=== PATIENT | female | born 1955 | race Caucasian/White ===

== ENCOUNTER → 2016-08-07 | Outpatient (CLI) | payer OTHER ==
[~2016-08-07] MED LIST: ALLEGRA PO; ALLEGRA180 MG PO; ASPIRIN81 M2 PO; DIFLUCAN100 MG PO; FISH OIL 1,2001 EAC5; FLONASE16 GM; LIDOCAINE VISCOU1 ML EXT; LIPITOR PO; LISINOPRIL-HCTZ1 T14 PO; NORVASC PO; PERCOCET 5-3251 TAB PO; PREMARIN PO; PREVACID PO; PYRIDIUM100 MG PO; SYNTHROID125 PO; VITAMIN C PO; VITAMIN D 4001 UDTAB PO; VYTORIN PO; ZOVIRAX800 MG PO
--- NOTE | ~2016-08-07 | MY11 ---
[facility] A Service of [facility] RADIOLOGY TEXT RESULTS PATIENT: LINDSAY BARAKAT LOCATION: [facility] : 55 UNIT #: [id number] AGE: [address]: Charlotte Webster MD SEX: F ORDER DR: [id number] [facility] [address] [place], [place] [address] [id number] O MR#: [id number] Acc #: [id number] NAME: LINDSAY BARAKAT. : 1955 SEX: F STUDY DATE/TIME: 08/07/2016 11:30 UNIT: [facility] ROOM: STUDY DESCRIPTION: MY Mammogram Screening Dig Anish Attending Physician: Charlotte Webster M.D. Referring Physician: Charlotte Webster M.D. Ordering Physician: Charlotte Webster M.D. Primary Care Physician: Charlotte Webster M.D. MEDICAL IMAGING REPORT This report is preliminary unless electronic signature is present EXAM Digital screening mammogram, 08/07/2016. HISTORY 60-year-old woman; no risk elevation. Annual screening. COMPARISON STUDIES Mammograms date to 05/01/2007, with most recent 08/04/2015. FINDINGS Digital imaging of each breast was completed utilizing standard craniocaudal and mediolateral-oblique projections. Review and interpretation of digital mammograms include a second review in conjunction with FDA-approved CAD device. There is an overall increase in the parenchymal presentation bilaterally with a generalized fibronodular pattern in each breast. There are no breast masses and I see no asymmetry in the parenchymal presentation. There are no suspicious microcalcifications and I see no architectural disturbance. IMPRESSION Benign mammogram. One-year followup recommended. Patients over the age of 40 are entered into a reminder system with target due date for the next mammogram. A result letter will also be sent to the patient. BIRADS: 2 Benign finding [facility] A Service of [facility] RADIOLOGY TEXT RESULTS PATIENT: LINDSAY BARAKAT LOCATION: [facility] : 55 UNIT #: [id number] AGE: [address]: Charlotte Webster MD SEX: F ORDER DR: Dictated by... Tyron Briggs M.D. THIS IS AN ELECTRONICALLY VERIFIED REPORT Tyron Briggs M.D. at 08/08/2016 8:04 AM ANILA/jde TD: 08/07/2016 16:03 JOB #: [id number] MEDICAL IMAGING REPORT Page 1 of 1 COPY
== END | disposition home or self-care (01) ==
LOC: CWCC 11:02
DX: Z12.31 Encounter for screening mammogram for malignant neoplasm of breast (principal)
CPT/HCPCS: G0202